=== PATIENT | female | born 1985 | race Caucasian/White ===

== ENCOUNTER → 2017-02-06 | Outpatient (CLI) | payer OTHER ==
[2017-02-06 19:32] LABS: BASO % 0.2 % (0.0-1.0); EOS # 0.2 K/mm3 (0.0-0.50); EOS % 1.9 % (0.0-3.0); LARGE UNSTAINED CELL # 0.1 K/mm3 (0.0-0.4); LARGE UNSTAINED CELL % 1.2 % (0.0-4.0); LYMPH # 1.5 K/mm3 (1.5-4.5); LYMPH % 18.6 % (24.0-44.0); MEAN CORPUSCULAR HEMOGLOBIN 31.8 pg (27.0-33.0); MEAN CORPUSCULAR HGB CONC 33.7 g/dl (32.0-36.5); MEAN CORPUSCULAR VOLUME 94.3 fl (80.0-96.0); MONO # 0.4 K/mm3 (0.0-0.8); MONO % 5.1 % (0.0-5.0); NEUTROPHILS # 5.9 K/mm3 (1.8-7.7); NEUTROPHILS % 73.1 % (36.0-66.0); PLATELET COUNT, AUTOMATED 299 k/mm3 (150-450); RED CELL DISTRIBUTION WIDTH 12.7 % (11.5-14.5)
[2017-02-08 10:04] LABS: HBsAg Prenatal NEGATIVE (NEGATIVE)
== END ==
LOC: M WUC 15:17
PROVIDERS: ATTEND Advanced Practice Midwife
DX: Z34.81 Encounter for supervision of other normal pregnancy, first trimester (principal)

== ENCOUNTER → 2017-03-07 | Outpatient (CLI) | payer OTHER ==
--- NOTE | 2017-03-07 09:16 | REP ---
Clinical: Anatomical evaluation. Comparison: None . Findings: Examination demonstrates a single live intrauterine in cephalic presentation. motion is identified by technologist. Placenta is noted posteriorly, low-lying and grade zero without evidence for placenta previa or abruption. Amniotic fluid volume is normal. Cervix measures 4.5 cm in length and appears closed. No evidence for nuchal cord. Gestational age by LMP 18 weeks 6 days with ALETHA 08/02/2017 . Gestational age by current measurements 20 weeks 3 days with ALETHA 07/22/2017 . FHR equals 141 beats per minute. BPD 4.9 cm 21 weeks 0 days HC 17.6 cm 20 weeks 1 day AC 15.3 cm 20 weeks 3 day FL 3.1 cm 19 weeks 4 days HL 3.2 cm 20 weeks 5 days HC/AC ratio 1.16 Estimated weight 333 grams ( 90th percentile based on current measurements ). Anatomical assessment demonstrates normal structures including cranium, choroid plexus, cavum, cerebellum/posterior fossa, lungs, four-chamber heart, diaphragm, stomach, cord insertion/three-vessel cord, kidneys/bladder, spine, and extremities. Limited evaluation of the facial features and cardiac ventricular outflow tracts noted. Impression: 1. Single live intrauterine in cephalic presentation. 2. Low-lying placenta and anatomical limitations as described above may warrant reevaluation and follow-up. Remainder examination appears normal. Signed by Hira Carrasco MD 03/07/2017 09:00 A
== END ==
LOC: M RAD 07:49
PROVIDERS: ATTEND Advanced Practice Midwife
DX: O44.42 Low lying placenta NOS or without hemorrhage, second trimester (principal); O99.212 Obesity complicating pregnancy, second trimester; Z3A.20 20 weeks gestation of pregnancy

== ENCOUNTER → 2017-03-08 | Outpatient (REF) | payer OTHER ==
[2017-03-15 15:23] LABS: SUMMARY SEE SEPARATE REPORT
== END ==
LOC: M LAB REF 13:24
PROVIDERS: ATTEND Obstetrics & Gynecology
DX: O99.211 Obesity complicating pregnancy, first trimester (principal)

== ENCOUNTER → 2017-04-19 | Outpatient (CLI) | payer OTHER ==
--- NOTE | 2017-04-19 17:57 | REP ---
OB ULTRASOUND: Real-time sonographic evaluation of the gravid uterus is performed. There is a single living intrauterine gestation. The estimated gestational age is 26 weeks 4 days based on the first ultrasound, [facility] 07/22/2017. Today's measurements indicate appropriate growth. BPD 69 mm = 27 weeks 6 days, 78th percentile HC 257 mm = 27 weeks 6 days, 79th percentile AC 222 mm = 26 weeks 4 days, 52nd percentile FL 49 mm = 26 weeks 2 days, 46th percentile HC/AC 1.6, within normal range. Estimated weight 974 grams, 47th percentile. heart rate 133 beats per minute. SEEN/GROSSLY UNREMARKABLE Lateral ventricles yes Posterior fossa no Upper lip yes Four-chamber heart no LVOT no RVOT no Stomach yes Cord insertion no Three vessel cord yes Kidneys yes Bladder yes Spine yes Cervix: Closed and measures 5.5 cm in length. position: Breech Placenta: Posterior and grade 0 with no previa or abruption. Amniotic fluid: Within normal limits. Signed by Jose Martini MD 04/22/2017 12:48 P
== END ==
LOC: M RAD 15:28
PROVIDERS: ATTEND Obstetrics & Gynecology
DX: O99.212 Obesity complicating pregnancy, second trimester (principal); Z3A.26 26 weeks gestation of pregnancy

== ENCOUNTER → 2017-05-03 | Outpatient (CLI) | payer OTHER ==
[2017-05-03 13:23] LABS: BASO % 0.4 % (0.0-1.0); EOS # 0.2 K/mm3 (0.0-0.50); EOS % 1.9 % (0.0-3.0); LARGE UNSTAINED CELL # 0.1 K/mm3 (0.0-0.4); LARGE UNSTAINED CELL % 0.7 % (0.0-4.0); LYMPH # 1.1 K/mm3 (1.5-4.5); LYMPH % 11.5 % (24.0-44.0); MEAN CORPUSCULAR HGB CONC 34.5 g/dl (32.0-36.5); MEAN CORPUSCULAR VOLUME 92.8 fl (80.0-96.0); MONO # 0.5 K/mm3 (0.0-0.8); MONO % 4.9 % (0.0-5.0); NEUTROPHILS # 7.4 K/mm3 (1.8-7.7); NEUTROPHILS % 80.5 % (36.0-66.0); PLATELET COUNT, AUTOMATED 276 k/mm3 (150-450); RED CELL DISTRIBUTION WIDTH 13.2 % (11.5-14.5); WHITE BLOOD COUNT 9.2 K/mm3 (4.0-10.0)
== END ==
LOC: M SMT 08:51
PROVIDERS: ATTEND Advanced Practice Midwife
DX: O99.212 Obesity complicating pregnancy, second trimester (principal); Z36 Encounter for antenatal screening of mother; Z3A.00 Weeks of gestation of pregnancy not specified

== ENCOUNTER → 2017-07-05 | Outpatient (REF) | payer OTHER ==
[~2017-07-05] MED LIST: PRENTAB9 PO; VALT500T PO; ZOLO100T PO
== END ==
LOC: M LAB REF 17:23
PROVIDERS: ATTEND Advanced Practice Midwife
DX: Z34.83 Encounter for supervision of other normal pregnancy, third trimester (principal); Z3A.00 Weeks of gestation of pregnancy not specified

== ENCOUNTER 2017-07-24 09:54 | Inpatient (IN) | payer OTHER ==
[~2017-07-24] VITALS: Ht 167.6 cm; Wt 150.3 kg
[2017-07-24] VITALS (45 sets, daily range): BP systolic 80–176; BP diastolic 45–98
[2017-07-24] MEDS ORDERED: VALT500T PO (10:10)
[2017-07-24] MEDS ORDERED: ZOLO100T PO (10:10)
[2017-07-24] MEDS ORDERED: PRENTAB9 PO (10:10)
[2017-07-24] MEDS ORDERED: LR 1,000 ML IV ONE (10:45)
[2017-07-24] MEDS ORDERED: PENICILLIN G POTASSIUM IV 5 MU in D5W MINI-BAG PLUS 100 ML IV ONE (11:00)
[2017-07-24 11:21] LABS: MEAN CORPUSCULAR HEMOGLOBIN 31.5 pg (27.0-33.0); MEAN CORPUSCULAR HGB CONC 34.4 g/dl (32.0-36.5); MEAN CORPUSCULAR VOLUME 91.6 fl (80.0-96.0); PLATELET COUNT, AUTOMATED 273 10^3/uL (150-450); RED CELL DISTRIBUTION WIDTH 13.2 % (11.5-14.5)
[2017-07-24] MEDS ORDERED: FENTANYL 2MCG/ML ROPIVACAINE 0.2% IN 0.9% NACL 200ML IVBAG As Ordered ONE (11:28)
[2017-07-24 12:14] LABS: ALBUMIN 2.8 GM/DL (3.2-5.2); ALKALINE PHOSPHATASE 143 U/L (45-117); ALT/SGPT 20 U/L (12-78); ANION GAP 11 MEQ/L (8-16); AST/SGOT 15 U/L (7-37); BILIRUBIN,TOTAL 0.3 MG/DL (0.2-1.0); BLOOD UREA NITROGEN 9 MG/DL (7-18); CARBON DIOXIDE LEVEL 21 MEQ/L (21-32); CHLORIDE LEVEL 103 MEQ/L (98-107); CREATININE FOR GFR 0.59 MG/DL (0.55-1.02); GLOMERULAR FILTRATION RATE > 60.0 (>60); GLUCOSE, FASTING 101 MG/DL (70-105); SODIUM LEVEL 135 MEQ/L (136-145); TOTAL PROTEIN 6.3 GM/DL (6.4-8.2); URIC ACID 4.4 MG/DL (2.6-6.0)
[2017-07-24] MEDS: LR 1,000 ML IV SCH ×2 (13:20→13:40)
[2017-07-24] MEDS ORDERED: ePHEDrine SULFATE 25 MG/5 ML(5MG/ML) SYRINGE IV PRN (13:30)
[2017-07-24] MEDS ORDERED: EPIDURAL COMMENT XX SCH (13:30)
[2017-07-24] MEDS ORDERED: diphenhydrAMINE INJ 50MG/ML VIAL (J1200) IV PRN (13:30)
[2017-07-24] MEDS ORDERED: REFRIGERATOR IV KEYS XX PRN (13:30)
[2017-07-24] MEDS ORDERED: ONDANSETRON 4MG/2ML VIAL (J2405) IV PRN (13:30)
[2017-07-24] MEDS ORDERED: NALOXONE INJ 0.4 MG/1 ML VIAL (J2310) IV PRN (13:30)
[2017-07-24] MEDS ORDERED: FENTANYL/ROPIVACAINE/NACL BAG 200 ML EPIDURAL SCH (13:30)
[2017-07-24] MEDS ORDERED: LACTATED RINGER'S 1000 ML IV PRN (13:30)
[2017-07-24] MEDS ORDERED: EPIDURAL/PCA KEYS XX PRN (13:30)
[2017-07-24] MEDS ORDERED: OXYTOCIN DRIP 30 UNITS in APPROPRIATE DILUENT 1 EA IV SCH (14:00)
[2017-07-24] MEDS: PENICILLIN G POTASSIUM IV 2.5 MU in APPROPRIATE DILUENT 1 EA IV SCH ×3 (15:14→23:02)
[2017-07-25] VITALS (12 sets, daily range): BP systolic 104–142; BP diastolic 55–72
[2017-07-25] MEDS ORDERED: BICITRA 30ML SOLN UDC As Ordered ONE (01:59)
[2017-07-25] MEDS ORDERED: BICITRA 30ML SOLN UDC PO ONE (02:00)
[2017-07-25] MEDS ORDERED: AZITHROMYCIN INJ 500 MG, VIAL MATE ADAPTER 1 EACH in D5W 250 ML IV ONE (02:15)
[2017-07-25 03:10] LABS: CORD GAS ABE V -4.6; CORD GAS HCO3 V 21.6 MEQ/L; CORD GAS O2 SAT V 89.1 %; CORD GAS PCO2 V 43.6 mmHg; CORD GAS PH V 7.312 UNITS; CORD GAS PO2 V 47.1 mmHg; CORD GAS SBC V 20.5 MEQ/L; CORD GAS TCO2 V 22.9 MEQ/L
[2017-07-25 03:12] LABS: CORD GAS ABE A -4.3; CORD GAS HCO3 A 23.5 MEQ/L; CORD GAS O2 SAT A 74.5 %; CORD GAS PCO2 A 54.3 mmHg; CORD GAS PH A 7.255 UNITS; CORD GAS SBC A 20.4 MEQ/L; CORD GAS TCO2 A 25.2 MEQ/L
[2017-07-25] MEDS ORDERED: OXYTOCIN INJ 10 UNITS/ML VIAL (J2590) As Ordered ONE (03:12)
[2017-07-25] MEDS ORDERED: ONDANSETRON 4MG/2ML VIAL (J2405) As Ordered ONE (03:12)
[2017-07-25] MEDS ORDERED: PHENYLephrine HCL 500 MCG/5 ML (100MCG/ML) SYRINGE (J2370) As Ordered ONE (03:12)
[2017-07-25] MEDS ORDERED: KETOROLAC 60 MG/2 ML VIAL (J1885) As Ordered ONE (03:12)
[2017-07-25] MEDS ORDERED: LIDOCAINE PRES-FREE 2% 10ML AMP As Ordered ONE (03:12)
[2017-07-25] MEDS ORDERED: MORPHINE PRES-FREE INJ 10 MG/10 ML VIAL (J2274) As Ordered ONE (03:22)
[2017-07-25] MEDS ORDERED: METOCLOPRAMIDE INJ 10MG/2ML VIAL (J2765) IV PRN ×2 (03:26→04:00)
[2017-07-25] MEDS ORDERED: NALOXONE INJ 0.4 MG/1 ML VIAL (J2310) IV PRN ×2 (03:26)
[2017-07-25] MEDS ORDERED: NALBUPHINE HCL 10 MG/ML AMP (J2300) IV PRN (03:26)
[2017-07-25] MEDS ORDERED: OXYTOCIN DRIP 30 UNITS in APPROPRIATE DILUENT 1 EA IV SCH (03:54)
[2017-07-25] MEDS ORDERED: LR 1,000 ML IV SCH ×2 (03:54→04:00)
[2017-07-25] MEDS ORDERED: fentaNYL 100 MCG/2 ML INJECTION (J3010) IV PRN (04:00)
[2017-07-25] MEDS ORDERED: MEASLES,MUMPS,RUBELLA VACCINE INJ (MMR-II) (90707) SC SCH (04:00)
[2017-07-25] MEDS ORDERED: ONDANSETRON 4MG/2ML VIAL (J2405) IV PRN ×2 (04:00)
[2017-07-25] MEDS ORDERED: PERCOCET 5MG/325MG TAB PO PRN (04:00)
[2017-07-25] MEDS ORDERED: PROMETHAZINE 25 MG TAB PO PRN (04:00)
[2017-07-25] MEDS ORDERED: MEPERIDINE INJ 25 MG/ML VIAL (J2175) IV PRN (04:00)
[2017-07-25] MEDS ORDERED: RHOGAM 300 MCG (1500 IU) INJ (J2790) IM SCH (04:00)
[2017-07-25] MEDS: PRENATAL VITAMINS CHEWABLE TABLET PO SCH (08:53)
[2017-07-25] MEDS: DOCUSATE SODIUM 100 MG CAP PO SCH ×2 (08:53→20:07)
[2017-07-25] MEDS: SERTRALINE HCL 50 MG TAB PO SCH (08:54)
[2017-07-25] MEDS ORDERED: valACYclovir HCL 500 MG TAB PO SCH (09:00)
[2017-07-25] MEDS ORDERED: SERTRALINE 100 MG TAB PO SCH (09:00)
[2017-07-25] MEDS ORDERED: PRENATAL VITAMINS CHEWABLE TABLET PO SCH (09:00)
[2017-07-25] MEDS: PERCOCET 5MG/325MG TAB PO PRN ×3 (09:12→20:07)
[2017-07-25] MEDS: KETOROLAC 30 MG/ML VIAL (J1885) IV SCH ×3 (09:12→21:44)
[2017-07-26 02:00] VITALS: BP 139/66
[2017-07-26] MEDS: KETOROLAC 30 MG/ML VIAL (J1885) IV SCH (03:33)
[2017-07-26] MEDS: PERCOCET 5MG/325MG TAB PO PRN ×5 (03:51→23:57)
[2017-07-26 06:00] VITALS: BP 125/59
[2017-07-26 07:17] LABS: MEAN CORPUSCULAR VOLUME 93.9 fl (80.0-96.0); PLATELET COUNT, AUTOMATED 209 10^3/uL (150-450); RED CELL DISTRIBUTION WIDTH 13.7 % (11.5-14.5); WHITE BLOOD COUNT 9.8 10^3/uL (4.0-10.0)
[2017-07-26] MEDS: PRENATAL VITAMINS CHEWABLE TABLET PO SCH (08:15)
[2017-07-26] MEDS: DOCUSATE SODIUM 100 MG CAP PO SCH ×2 (08:16→20:29)
[2017-07-26] MEDS: SERTRALINE HCL 50 MG TAB PO SCH (08:16)
[2017-07-26] MEDS ORDERED: OXYC1TAB23 PO (08:28)
[2017-07-26] MEDS ORDERED: IBUP80TA PO (08:29)
[2017-07-26] MEDS ORDERED: COLA100C5 PO (08:30)
[2017-07-26 10:34] VITALS: BP 122/57
[2017-07-26] MEDS: IBUPROFEN 800 MG TAB PO SCH ×2 (12:13→20:29)
[2017-07-26 15:00] VITALS: BP 137/77
[2017-07-26 18:12] VITALS: BP 139/89
[2017-07-26 22:00] VITALS: BP 119/62
[2017-07-27] MEDS: IBUPROFEN 800 MG TAB PO SCH ×2 (04:12→11:16)
[2017-07-27 06:00] VITALS: BP 101/56
[2017-07-27] MEDS: PERCOCET 5MG/325MG TAB PO PRN (08:29)
[2017-07-27] MEDS: DOCUSATE SODIUM 100 MG CAP PO SCH (08:29)
[2017-07-27] MEDS: PRENATAL VITAMINS CHEWABLE TABLET PO SCH (08:29)
[2017-07-27] MEDS: SERTRALINE HCL 50 MG TAB PO SCH (08:30)
[2017-07-27] MEDS ORDERED: IBUP-1114 PO (10:39)
[2017-07-27] MEDS ORDERED: COLA100C5 PO (10:40)
[2017-07-27] MEDS ORDERED: OXYC1TAB23 PO (10:41)
--- NOTE | 2017-07-28 16:34 | DSES ---
DATE OF ADMISSION: 07/24/2017 DATE OF DISCHARGE: 07/27/2017 DISCHARGE DIAGNOSIS: Primary section for arrest of dilation. PROCEDURES PERFORMED WHILE IN HOSPITAL: 1. Epidural. 2. Primary section. DISCHARGE CONDITION: Stable. HISTORY AND HOSPITAL COURSE: This patient presented in active labor, had arrest of dilation in active phase of labor and underwent an uncomplicated section productive of a live born male , scores 7 and 9, weight was 3430 grams. Estimated blood loss was 800 mL. She did well postoperatively. By postoperative day #2, had met all discharge criteria and was discharged home in a stable condition. PHYSICAL EXAMINATION ON DATE OF DISCHARGE: VITAL SIGNS: Stable. She is afebrile. GENERAL APPEARANCE: Well-appearing, no acute distress. ABDOMEN: Soft, appropriately tender. Fundus was below umbilicus. Incision was clean, dry, intact, well-approximated, non-erythematic. EXTREMITIES: Negative for calf tenderness. DISCHARGE MEDICATIONS: - ibuprofen - Percocet DISCHARGE INSTRUCTIONS: 1. She is instructed to followup in 2 weeks for an incision check. 2. She will report severe pain, heavy vaginal bleeding, fever, or incisional issues. 3. Remain on pelvic rest for 6 weeks.
== END 2017-07-27 13:50 | disposition home or self-care (01) | DRG 765 ==
LOC: M LDI 09:54 → M OBS 07-25 06:10
PROVIDERS: ADMIT Obstetrics & Gynecology; ATTEND Obstetrics & Gynecology
PROC: 10907ZC Drainage of Amniotic Fluid, Therapeutic from Products of Conception, Via Natural or Artificial Opening (ICD-10-PCS; 2017-07-24)
PROC: 10D00Z1 Extraction of Products of Conception, Low, Open Approach (ICD-10-PCS; principal; 2017-07-25 02:31)
DX: O99.824 Streptococcus B carrier state complicating childbirth (principal); O98.32 Other infections with a predominantly sexual mode of transmission complicating childbirth; Z37.0 Single live birth; Z3A.38 38 weeks gestation of pregnancy; O99.344 Other mental disorders complicating childbirth; E66.9 Obesity, unspecified; O99.214 Obesity complicating childbirth; O62.0 Primary inadequate contractions; F32.9 Major depressive disorder, single episode, unspecified; A60.09 Herpesviral infection of other urogenital tract; F41.9 Anxiety disorder, unspecified; Z79.899 Other long term (current) drug therapy; Z87.891 Personal history of nicotine dependence

== ENCOUNTER → 2021-07-17 | Outpatient (REF) | payer OTHER ==
[~2021-07-17] MED LIST changes: +COLA100C5 PO; +IBUP-1114 PO; +IBUP80TA PO; +OXYC1TAB23 PO
== END ==
LOC: M LAB REF 20:55
PROVIDERS: ATTEND Physician Assistant
DX: J06.9 Acute upper respiratory infection, unspecified (principal)

== ENCOUNTER → 2022-06-12 | Outpatient (CLI) | payer OTHER ==
[2022-06-12 15:40] LABS: HEMATOCRIT 36.9 % (36.0-47.0); HEMOGLOBIN 12.3 g/dl (12.0-15.5); MEAN CORPUSCULAR HEMOGLOBIN 30.6 pg (27.0-33.0); MEAN CORPUSCULAR HGB CONC 33.3 g/dl (32.0-36.5); MEAN CORPUSCULAR VOLUME 91.8 fl (80.0-96.0); PLATELET COUNT, AUTOMATED 269 10^3/uL (150-450); RED BLOOD COUNT 4.02 10^6/uL (4.00-5.40); WHITE BLOOD COUNT 8.1 10^3/uL (4.0-10.0)
[2022-06-12 17:16] LABS: GC DNA AMPLIFICATION NEGATIVE (NEGATIVE)
[2022-06-13 22:47] LABS: HEPATITIS C VIRUS ABY INDEX < 0.0 INDEX (<0.8); HIV 1&2 SCREEN CENTAUR NEGATIVE (NEGATIVE)
== END ==
LOC: M PLALAB 13:57
PROVIDERS: ATTEND Advanced Practice Midwife
DX: Z36.89 Encounter for other specified antenatal screening (principal)

== ENCOUNTER → 2022-07-06 | Outpatient (CLI) | payer OTHER ==
[2022-07-06 07:11] LABS: BASO % 0.4 % (0.0-1.0); EOS # 0.2 10^3/uL (0.0-0.5); EOS % 2.9 % (0.0-3.0); HEMATOCRIT 35.9 % (36.0-47.0); HEMOGLOBIN 12.1 g/dl (12.0-15.5); LYMPH # 1.1 10^3/uL (1.5-5.0); LYMPH % 21.8 % (24.0-44.0); MEAN CORPUSCULAR HEMOGLOBIN 30.9 pg (27.0-33.0); MEAN CORPUSCULAR HGB CONC 33.7 g/dl (32.0-36.5); MEAN CORPUSCULAR VOLUME 91.8 fl (80.0-96.0); MONO # 0.6 10^3/uL (0.0-0.8); MONO % 11.2 % (2.0-8.0); NEUTROPHILS # 3.3 10^3/uL (1.5-8.5); NEUTROPHILS % 63.3 % (36.0-66.0); PLATELET COUNT, AUTOMATED 239 10^3/uL (150-450); RED BLOOD COUNT 3.91 10^6/uL (4.00-5.40); WHITE BLOOD COUNT 5.2 10^3/uL (4.0-10.0)
[2022-07-06 07:46] LABS: ALBUMIN 2.9 GM/DL (3.2-5.2); ALT/SGPT 22 U/L (12-78); BILIRUBIN,TOTAL 0.4 MG/DL (0.2-1.0); BLOOD UREA NITROGEN 7 MG/DL (7-18); CALCIUM LEVEL 8.6 MG/DL (8.5-10.1); CARBON DIOXIDE LEVEL 24 MEQ/L (21-32); CHLORIDE LEVEL 106 MEQ/L (98-107); CHOLESTEROL LEVEL 231 MG/DL (<200); CHOLESTEROL RISK RATIO 3.553 (<5); CREATININE FOR GFR 0.66 MG/DL (0.55-1.30); FREE T4 0.87 NG/DL (0.76-1.46); GLOMERULAR FILTRATION RATE > 60.0 (>60); GLUCOSE, FASTING 103 MG/DL (70-100); HDL CHOLESTEROL 65 MG/DL (>40); LDL CHOLESTEROL 128 MG/DL (<100); NON-HDL-C 166 MG/DL; POTASSIUM SERUM 3.9 MEQ/L (3.5-5.1); SODIUM LEVEL 136 MEQ/L (136-145); THYROID STIMULATING HORMONE 0.563 uIU/ML (0.358-3.740); TRIGLYCERIDES LEVEL 189 MG/DL (<150)
[2022-07-06 08:46] LABS: TOTAL 25(OH) VITAMIN D 54.2 NG/ML (30.0-100.0)
== END ==
LOC: M LAB 06:17
PROVIDERS: ATTEND Nurse Practitioner Adult Health
DX: E55.9 Vitamin D deficiency, unspecified (principal); E66.01 Morbid (severe) obesity due to excess calories

== ENCOUNTER → 2022-07-10 | Outpatient (REF) | payer OTHER | LOC: M PLALAB 15:36 | PROVIDERS: ATTEND Advanced Practice Midwife | DX: Z34.92 Encounter for supervision of normal pregnancy, unspecified, second trimester (principal) ==

== ENCOUNTER → 2022-08-22 | Outpatient (CLI) | payer OTHER | LOC: M WHC 14:36 | PROVIDERS: ATTEND Advanced Practice Midwife | DX: Z34.92 Encounter for supervision of normal pregnancy, unspecified, second trimester (principal); Z3A.20 20 weeks gestation of pregnancy ==

== ENCOUNTER → 2022-09-24 | Outpatient (CLI) | payer OTHER ==
[2022-09-24 13:35] LABS: HEMOGLOBIN 12.5 g/dl (12.0-15.5); MEAN CORPUSCULAR HEMOGLOBIN 31.4 pg (27.0-33.0); MEAN CORPUSCULAR HGB CONC 32.9 g/dl (32.0-36.5); MEAN CORPUSCULAR VOLUME 95.5 fl (80.0-96.0); PLATELET COUNT, AUTOMATED 309 10^3/uL (150-450); RED BLOOD COUNT 3.98 10^6/uL (4.00-5.40); WHITE BLOOD COUNT 9.3 10^3/uL (4.0-10.0)
[2022-09-24 15:56] LABS: GC DNA AMPLIFICATION NEGATIVE (NEGATIVE)
== END ==
LOC: M PLALAB 09:42
PROVIDERS: ATTEND Specialist
DX: Z34.02 Encounter for supervision of normal first pregnancy, second trimester (principal); Z3A.00 Weeks of gestation of pregnancy not specified

== ENCOUNTER → 2022-09-24 | Outpatient (CLI) | payer OTHER | LOC: M PLALAB 09:40 | PROVIDERS: ATTEND Advanced Practice Midwife | DX: Z34.92 Encounter for supervision of normal pregnancy, unspecified, second trimester (principal) ==

== ENCOUNTER → 2022-09-28 | Outpatient (CLI) | payer OTHER | LOC: M WHC 14:52 | PROVIDERS: ATTEND Specialist | DX: Z34.02 Encounter for supervision of normal first pregnancy, second trimester (principal); Z3A.26 26 weeks gestation of pregnancy ==

== ENCOUNTER → 2022-10-18 | Outpatient (REF) | payer OTHER | LOC: M PLALAB 10:33 | PROVIDERS: ATTEND Advanced Practice Midwife | DX: O09.523 Supervision of elderly multigravida, third trimester (principal); Z53.9 Procedure and treatment not carried out, unspecified reason ==

== ENCOUNTER → 2022-11-15 | Outpatient (REF) | payer OTHER | LOC: M SFHCWAGY 16:49 | PROVIDERS: ATTEND Advanced Practice Midwife | DX: O09.523 Supervision of elderly multigravida, third trimester (principal); Z3A.00 Weeks of gestation of pregnancy not specified | CPT/HCPCS: 87086; G0463 ==

== ENCOUNTER → 2022-11-30 | Outpatient (CLI) | payer OTHER ==
[2022-11-30 19:05] LABS: HEMATOCRIT 36.2 % (36.0-47.0); HEMOGLOBIN 11.7 g/dl (12.0-15.5); MEAN CORPUSCULAR HGB CONC 32.3 g/dl (32.0-36.5); PLATELET COUNT, AUTOMATED 248 10^3/uL (150-450); RED BLOOD COUNT 3.77 10^6/uL (4.00-5.40)
[2022-11-30 19:23] LABS: TOTAL PROTEIN,RANDOM URINE 14.1 MG/DL (0.0-14.0)
[2022-11-30 19:25] LABS: URIC ACID 5.2 MG/DL (3.1-7.8)
[2022-11-30 19:27] LABS: LDH LACTATE DEHYDROGENASE 174 U/L (120-246)
[2022-11-30 19:28] LABS: ALT/SGPT 16 U/L (7.0-40); AST/SGOT 19 U/L (<34); BILIRUBIN,TOTAL 0.6 MG/DL (0.3-1.2); CREATININE FOR GFR 0.58 MG/DL (0.55-1.30); CREATININE,RANDOM URINE 67.8 MG/DL; GLOMERULAR FILTRATION RATE > 60.0 (>60)
== END ==
LOC: M LAB 16:48
PROVIDERS: ATTEND Advanced Practice Midwife
DX: O16.3 Unspecified maternal hypertension, third trimester (principal); Z3A.00 Weeks of gestation of pregnancy not specified
CPT/HCPCS: 36415; 82247; 82565; 82570; 83615; 84156; 84450; 84460; 84550; 85027; G0463

== ENCOUNTER → 2022-12-03 | Outpatient (CLI) | payer OTHER | LOC: M RAD 12:15 | PROVIDERS: ATTEND Advanced Practice Midwife | DX: O09.523 Supervision of elderly multigravida, third trimester (principal); Z3A.34 34 weeks gestation of pregnancy ==

== ENCOUNTER → 2022-12-13 | Outpatient (REF) | payer OTHER | LOC: M PLALAB 09:55 | PROVIDERS: ATTEND Obstetrics & Gynecology | DX: Z36.85 Encounter for antenatal screening for Streptococcus B (principal); Z3A.36 36 weeks gestation of pregnancy | CPT/HCPCS: 87081; G0463 ==

== ENCOUNTER 2022-12-20 22:49 | Outpatient (CLI) | payer OTHER ==
[~2022-12-20] VITALS: Ht 167.6 cm; Wt 159.8 kg
[2022-12-20 23:10] VITALS: BP 129/72
[2022-12-20] MEDS ORDERED: HOME MED LIST COMPLETE! XX SCH (23:25)
[2022-12-20 23:28] VITALS: BP 127/65
[2022-12-21 00:46] LABS: TOTAL PROTEIN,RANDOM URINE 22.1 MG/DL (0.0-14.0)
[2022-12-21 00:48] LABS: HEMATOCRIT 36.8 % (36.0-47.0); HEMOGLOBIN 12.1 g/dl (12.0-15.5); MEAN CORPUSCULAR HEMOGLOBIN 31.7 pg (27.0-33.0); MEAN CORPUSCULAR HGB CONC 32.9 g/dl (32.0-36.5); MEAN CORPUSCULAR VOLUME 96.3 fl (80.0-96.0); PLATELET COUNT, AUTOMATED 223 10^3/uL (150-450); RED BLOOD COUNT 3.82 10^6/uL (4.00-5.40); URIC ACID 5.8 MG/DL (3.1-7.8); WHITE BLOOD COUNT 11.2 10^3/uL (4.0-10.0)
[2022-12-21 00:50] LABS: LDH LACTATE DEHYDROGENASE 213 U/L (120-246)
[2022-12-21 00:51] LABS: ALBUMIN 2.6 G/DL (3.2-5.2); ALKALINE PHOSPHATASE 149 U/L (46-116); ALT/SGPT 18 U/L (7.0-40); AST/SGOT 22 U/L (<34); BILIRUBIN,TOTAL 0.4 MG/DL (0.3-1.2); BLOOD UREA NITROGEN 8 MG/DL (9-23); CALCIUM LEVEL 9.3 MG/DL (8.5-10.1); CARBON DIOXIDE LEVEL 25 MMOL/L (20-31); CHLORIDE LEVEL 103 MMOL/L (98-107); CREATININE FOR GFR 0.68 MG/DL (0.55-1.30); GLOMERULAR FILTRATION RATE > 60.0 (>60); GLUCOSE, FASTING 79 MG/DL (60-100); POTASSIUM SERUM 3.7 MMOL/L (3.5-5.1); SODIUM LEVEL 136 MMOL/L (136-145); TOTAL PROTEIN 5.8 G/DL (5.7-8.2)
[2022-12-21 00:51] LABS: CREATININE,RANDOM URINE 162.7 MG/DL
== END 2022-12-21 01:00 | disposition home or self-care (01) ==
LOC: M LDO 22:49
PROVIDERS: ATTEND Obstetrics & Gynecology
DX: O26.893 Other specified pregnancy related conditions, third trimester (principal); R03.0 Elevated blood-pressure reading, without diagnosis of hypertension; O34.219 Maternal care for unspecified type scar from previous cesarean delivery; Z3A.37 37 weeks gestation of pregnancy

== ENCOUNTER 2022-12-27 16:07 | Inpatient (IN) | payer OTHER ==
[2022-12-27] VITALS (8 sets, daily range): BP systolic 137–180; BP diastolic 85–104
[~2022-12-27] VITALS: Ht 167.6 cm; Wt 159.9 kg
[2022-12-27] MEDS ORDERED: CLAR10CA3 PO (16:35)
[2022-12-27] MEDS ORDERED: NASA1SPR NARES (16:35)
[2022-12-27] MEDS ORDERED: VITAD400CA FT (16:35)
[2022-12-27] MEDS ORDERED: ASPI81CH33 PO (16:35)
[2022-12-27] MEDS ORDERED: EFFE150C2 PO (16:35)
[2022-12-27] MEDS ORDERED: VITAD400CA PO (16:36)
[2022-12-27] MEDS ORDERED: HOME MED LIST COMPLETE! XX SCH (16:40)
[2022-12-27] MEDS ORDERED: VALT500T PO (17:21)
[2022-12-27] MEDS ORDERED: LACTATED RINGER'S 1000 ML IV STA (17:52)
[2022-12-27] MEDS ORDERED: OXYTOCIN DRIP 30 UNITS in IV 1 EA IV PRN (17:55)
[2022-12-27] MEDS ORDERED: ceFAZolin SOD 3 GM IV Place Holder IV ONE (17:55)
[2022-12-27] MEDS ORDERED: TRANEXAMIC ACID INJection 1,000 MG in NS 100 ML IV PRN (17:55)
[2022-12-27] MEDS ORDERED: BICITRA 30ML SOLN UDC PO ONE (17:55)
[2022-12-27] MEDS ORDERED: ceFAZolin SOD 2 GM in IV 1 EA IV ONE (18:00)
[2022-12-27 18:15] LABS: HEMATOCRIT 35.3 % (36.0-47.0); MEAN CORPUSCULAR HEMOGLOBIN 32.1 pg (27.0-33.0); MEAN CORPUSCULAR VOLUME 94.4 fl (80.0-96.0); PLATELET COUNT, AUTOMATED 234 10^3/uL (150-450); RED BLOOD COUNT 3.74 10^6/uL (4.00-5.40); WHITE BLOOD COUNT 9.5 10^3/uL (4.0-10.0)
[2022-12-27 18:30] LABS: TOTAL PROTEIN,RANDOM URINE 21.5 MG/DL (0.0-14.0)
[2022-12-27 18:35] LABS: CREATININE,RANDOM URINE 172.7 MG/DL
[2022-12-27 18:45] LABS: LDH LACTATE DEHYDROGENASE 317 U/L (120-246)
[2022-12-27 18:46] LABS: ALT/SGPT 19 U/L (7.0-40); AST/SGOT 32 U/L (<34); BILIRUBIN,TOTAL 0.4 MG/DL (0.3-1.2); CREATININE FOR GFR 0.71 MG/DL (0.55-1.30); GLOMERULAR FILTRATION RATE > 60.0 (>60)
[2022-12-27] MEDS ORDERED: ceFAZolin SOD 1 GM in D5W MINI-BAG PLUS 50 ML IV ONE (19:00)
[2022-12-27 19:06] LABS: URIC ACID 6.6 MG/DL (3.1-7.8)
[2022-12-27] MEDS: LR 1,000 ML IV SCH (20:00)
[2022-12-27] MEDS ORDERED: OXYTOCIN DRIP 30 UNITS in IV 1 EA IV SCH (21:05)
[2022-12-27] MEDS ORDERED: RHOGAM 300MCG (1500IU) INJ IM SCH (21:05)
[2022-12-27] MEDS ORDERED: MOM 30ML SUSPENSION UDC PO PRN (21:05)
[2022-12-27] MEDS ORDERED: LR 1,000 ML IV SCH ×2 (21:05→21:55)
[2022-12-27] MEDS ORDERED: SIMETHICONE 80MG CHEW TAB PO PRN (21:05)
[2022-12-27] MEDS ORDERED: ONDANSETRON 4MG 2ML VIAL IV PRN ×3 (21:05→21:55)
[2022-12-27 21:51] LABS: CORD GAS ABE A -2.3; CORD GAS HCO3 A 23.9 MEQ/L; CORD GAS O2 SAT A 47.1 %; CORD GAS PCO2 A 46.2 mmHg; CORD GAS PH A 7.331 UNITS; CORD GAS PO2 A 20.6 mmHg; CORD GAS SBC A 21.4 MEQ/L; CORD GAS TCO2 A 25.3 MEQ/L
[2022-12-27 21:53] LABS: CORD GAS ABE V -3.9; CORD GAS HCO3 V 21.3 MEQ/L; CORD GAS O2 SAT V 92.6 %; CORD GAS PCO2 V 39.6 mmHg; CORD GAS PH V 7.349 UNITS; CORD GAS PO2 V 52.9 mmHg; CORD GAS SBC V 21.1 MEQ/L; CORD GAS TCO2 V 22.5 MEQ/L
[2022-12-27] MEDS ORDERED: METOCLOPRAMIDE INJ 10MG/2ML VIAL IV PRN (21:55)
[2022-12-27] MEDS ORDERED: diphenhydrAMINE 50MG/ML VIAL IV PRN (21:55)
[2022-12-27] MEDS ORDERED: ACETAMINOPHEN 1000MG 100ML IV BAG As Ordered ONE (21:55)
[2022-12-27] MEDS ORDERED: MORPHINE PRES-FREE INJ 10 MG/10 ML VIAL As Ordered ONE (21:55)
[2022-12-27] MEDS ORDERED: KETOROLAC 60MG 2ML VIAL As Ordered ONE (21:55)
[2022-12-27] MEDS ORDERED: NALOXONE INJ 0.4MG/1ML VIAL IV PRN ×2 (21:55)
[2022-12-27] MEDS ORDERED: ePHEDrine SULFATE 25 MG/5 ML(5MG/ML) SYRINGE As Ordered ONE (21:55)
[2022-12-27] MEDS ORDERED: PHENYLephrine 500MCG 5ML (100MCG/ML) SYRINGE As Ordered ONE (21:55)
[2022-12-27] MEDS ORDERED: METOCLOPRAMIDE INJ 10MG/2ML VIAL As Ordered ONE (21:55)
[2022-12-27] MEDS ORDERED: fentaNYL 100 MCG/2 ML INJECTION IV PRN (21:55)
[2022-12-27] MEDS ORDERED: OXYTOCIN 30UNITS IN 0.9% NaCl 500ML IV BAG As Ordered ONE (21:55)
[2022-12-27] MEDS ORDERED: ONDANSETRON 4MG 2ML VIAL As Ordered ONE (21:55)
[2022-12-28] VITALS (10 sets, daily range): BP systolic 119–140; BP diastolic 63–89
[2022-12-28] MEDS: KETOROLAC 30 MG/ML 1ML VIAL IV SCH ×3 (02:03→14:13)
[2022-12-28] MEDS: LR 1,000 ML IV SCH ×2 (04:07→09:55)
[2022-12-28 07:42] LABS: HEMOGLOBIN 10.6 g/dl (12.0-15.5); MEAN CORPUSCULAR HEMOGLOBIN 31.5 pg (27.0-33.0); MEAN CORPUSCULAR HGB CONC 33.1 g/dl (32.0-36.5); PLATELET COUNT, AUTOMATED 209 10^3/uL (150-450); RED BLOOD COUNT 3.37 10^6/uL (4.00-5.40); WHITE BLOOD COUNT 10.7 10^3/uL (4.0-10.0)
[2022-12-28] MEDS: FERROUS SULFATE 325MG TAB PO SCH (08:04)
[2022-12-28] MEDS: DOCUSATE SODIUM 100MG CAPSULE PO SCH ×2 (08:04→22:09)
[2022-12-28] MEDS: PRENATAL VITAMINS CHEWABLE TABLET PO SCH (08:04)
[2022-12-28] MEDS: ENOXAPARIN 40MG/0.4ML SYRINGE (J1650 PER 10MG) SC SCH ×2 (08:43→22:09)
[2022-12-28] MEDS ORDERED: ENOXAPARIN 40MG/0.4ML SYRINGE (J1650 PER 10MG) SC SCH (09:00)
[2022-12-28] MEDS: VENLAFAXINE **XR** 75MG CAPSULE PO SCH (12:24)
[2022-12-28] MEDS: IBUPROFEN 800 MG TAB PO SCH (22:10)
[2022-12-28] MEDS: PERCOCET 5MG/325MG TAB PO PRN (22:11)
[2022-12-29 02:00] VITALS: BP 143/78
[2022-12-29] MEDS: IBUPROFEN 800 MG TAB PO SCH ×3 (05:50→21:32)
[2022-12-29 06:00] VITALS: BP 137/70
[2022-12-29] MEDS ORDERED: MEASLES,MUMPS,RUBELLA VACCINE INJ (MMR-II) SC.IMMUN ONE (09:00)
[2022-12-29] MEDS: FERROUS SULFATE 325MG TAB PO SCH (09:15)
[2022-12-29] MEDS: VENLAFAXINE **XR** 75MG CAPSULE PO SCH (09:15)
[2022-12-29] MEDS: PRENATAL VITAMINS CHEWABLE TABLET PO SCH (09:15)
[2022-12-29] MEDS: DOCUSATE SODIUM 100MG CAPSULE PO SCH ×2 (09:15→21:31)
[2022-12-29] MEDS: ENOXAPARIN 40MG/0.4ML SYRINGE (J1650 PER 10MG) SC SCH ×2 (09:16→21:31)
[2022-12-29] MEDS: PERCOCET 5MG/325MG TAB PO PRN ×3 (09:26→23:27)
[2022-12-29 10:00] VITALS: BP 135/66
[2022-12-29 18:00] VITALS: BP 142/79
[2022-12-30] MEDS: IBUPROFEN 800 MG TAB PO SCH (05:52)
[2022-12-30] MEDS: PERCOCET 5MG/325MG TAB PO PRN (05:52)
[2022-12-30 06:00] VITALS: BP 144/79
[2022-12-30] MEDS: VENLAFAXINE **XR** 75MG CAPSULE PO SCH (09:45)
[2022-12-30] MEDS: DOCUSATE SODIUM 100MG CAPSULE PO SCH (09:45)
[2022-12-30] MEDS: PRENATAL VITAMINS CHEWABLE TABLET PO SCH (09:46)
[2022-12-30] MEDS: ENOXAPARIN 40MG/0.4ML SYRINGE (J1650 PER 10MG) SC SCH (09:46)
[2022-12-30] MEDS: FERROUS SULFATE 325MG TAB PO SCH (09:46)
[2022-12-30] MEDS ORDERED: IBUP80TA PO (10:32)
[2022-12-30] MEDS ORDERED: OXYC1TAB23 PO (10:43)
== END 2022-12-30 13:45 | disposition home or self-care (01) | DRG 785 ==
LOC: M LDO 16:07 → M LDI 17:07 → M OBS 23:56
PROVIDERS: ADMIT Obstetrics & Gynecology; ATTEND Obstetrics & Gynecology
PROC: 0UB70ZZ Excision of Bilateral Fallopian Tubes, Open Approach (ICD-10-PCS; 2022-12-27)
PROC: 10D00Z1 Extraction of Products of Conception, Low, Open Approach (ICD-10-PCS; principal; 2022-12-27 20:34)
DX: O34.211 Maternal care for low transverse scar from previous cesarean delivery (principal); O13.4 Gestational [pregnancy-induced] hypertension without significant proteinuria, complicating childbirth; Z3A.38 38 weeks gestation of pregnancy; Z37.0 Single live birth; Z30.2 Encounter for sterilization; O36.8330 Maternal care for abnormalities of the fetal heart rate or rhythm, third trimester, not applicable or unspecified